=== PATIENT | female | born 1940 | race Caucasian/White ===

== ENCOUNTER 2024-11-27 10:57 | Outpatient (OUT) | payer MEDICARE, SELFPAY ==
[2024-11-27 11:36] LABS: Hematocrit 40.8 % (36.0-48.0); Hemoglobin 13.4 g/dL (12.0-16.0); Immature Granulocytes Abs Auto 0.00 10^3/uL (0.00-0.03); Immature Granulocytes Pct Auto 0.0 % (0.0-0.5); Lymphocytes Absolute Auto 1.6 10^3/uL (1.2-3.8); Mean Corpuscular HGB Conc 32.8 g/dL (29.9-35.2); Mean Corpuscular Hemoglobin 33.8 pg (26.7-34.0); Mean Corpuscular Volume 102.8 fL (81.0-99.0); Platelet Count 191 10^3/uL (150-450); Red Blood Count 3.97 10^6/uL (4.20-5.40); White Blood Count 4.2 10^3/uL (4.0-11.0)
== END 2024-11-27 10:58 | disposition home or self-care (01) ==
LOC: LAB 11:02
PROVIDERS: PCP Family Medicine; Visit Provider Ophthalmology
DX: C43.111 Malignant melanoma of right upper eyelid, including canthus (principal)
CPT/HCPCS: 36415; 85025

== ENCOUNTER 2025-01-09 19:36 | Emergency (ER) | payer MEDICARE, SELFPAY ==
[2025-01-09 19:46] VITALS: BP 150/72; PULSE 60; TEMP 36.4; O2SAT 96; BMI 24.1
--- NOTE | 2025-01-09 19:57 | CT_ITS ---
[address] [address] Patient Name: SARAH KAY MRN: [id number] date: 1940 Sex: F Assigned Patient Location: ER Current Patient Location: [facility] Accession/Order Number: [id number] Exam Date: 01/09/2025 20:15 Report Date: 01/09/2025 21:01 At the request of: ABBY TINOCO Procedure: CT cervical spine wo con Unenhanced head CT TECHNIQUE: Contiguous axial imaging of the head. The CT exam was performed using one or more the following dose reduction techniques: Automated exposure control, adjustment of the MA and/or Kv according to patient size, or use of the iterative reconstruction technique. COMPARISON: None HISTORY: Fell. Head injury. VENTRICLES: Within normal limits ATROPHY: None BRAIN PARENCHYMA: Adequate flores-white matter differentiation identified. HEMORRHAGE: None HERNIATION: No mass effect or herniation INFARCTION: No recent vascular distribution infarction is seen. EXTRA-AXIAL FLUID COLLECTIONS None MIDBRAIN: Unremarkable SENTHIL: Unremarkable MEDULLA: Unremarkable SINUSES: Opacification of the maxillary sinuses. ORBITS: Grossly unremarkable MASTOIDS: Unremarkable BONY STRUCTURES Intact ADDITIONAL FINDINGS: CT/CT head/brain wo con IMPRESSION: No acute intracranial findings. Posterior scalp hematoma. CT Cervical Spine withoutcontrast TECHNIQUE: Axial imaging with 2-D and 3-D reconstruction. The CT exam was performed using one or more the following dose reduction techniques: Automated exposure control, adjustment of the MA and/or Kv according to patient size, or use of the iterative reconstruction technique. COMPARISON: None HISTORY: Fell. Head injury. POST SURGERY CHANGES: None BONY ALIGNMENT: Adequate BONY SPINAL CANAL: Patent central bony canal FRACTURE: None BONY LESIONS: None SOFT TISSUES: Unremarkable DEGENERATIVE CHANGES: Extensive multilevel degenerative changes. LUNG APICES: Unremarkable ADDITIONAL FINDINGS: Posterior scalp hematoma IMPRESSION: No acute process Impression dictated by: Aaron Albarran M.D. 01/09/2025 9:01 PM Dictation Location: [facility] [employer] Electronically authenticated by: [id number] Y Date: 01/09/2025 21:01
--- NOTE | 2025-01-09 19:57 | XR_ITS ---
The [address] [address] Patient Name: SARAH KAY MRN: [id number] date: 1940 Sex: F Assigned Patient Location: ER Current Patient Location: ED.MAIN Accession/Order Number: [id number] Exam Date: 01/09/2025 20:15 Report Date: 01/09/2025 21:09 At the request of: ABBY TINOCO Procedure: XR hip LT 2V w/ pelvis 2 views left hip with single view pelvis HISTORY: Fell injuring left hip. Left hip arthroplasty. No hardware complication. Diffuse osteopenia and degenerative change. No acute displaced fracture. XR/XR hip LT 2V w/ pelvis IMPRESSION: Uncomplicated left hip arthroplasty. No acute displaced fracture. Impression dictated by: Aaron Albarran M.D. 01/09/2025 9:09 PM Dictation Location: [facility] Electronically authenticated by: [id number] Y Date: 01/09/2025 21:09
--- NOTE | 2025-01-09 19:57 | ED_ITS ---
HPI HPI - Fall General Chief Complaint: Fall Stated Complaint: FALL Time Seen by Provider: 01/09/25 19:47 Source: patient Mode of arrival: Wheelchair Limitations: no limitations History of Present Illness HPI Narrative: The patient is a 84-year-old female who presents to the Emergency Department after sustaining a head injury earlier today. She reports that she was walking down stairs when she fell near the last step, striking the back of her head. She recalls the entire event. She did not lose consciousness and denies any nausea, vomiting, disorientation, visual changes, or confusion. She does recall the entire event and was ambulatory afterward. She reports some bleeding from the scalp and pain over the left hip, which she also may have impacted during the fall. She denies neck pain, numbness, or tingling in extremities, and is able to ambulate without difficulty. She also denies headache, dizziness, chest pain, or shortness of breath. Related Data Home Medications ?Medication ?Instructions ?Recorded ?Confirmed amlodipine 5 mg tablet 5 mg PO DAILY 01/09/2501/09 atorvastatin 40 mg tablet 40 mg PO DAILY 01/09/2507/01 levetiracetam 500 mg tablet 500 mg PO BID 01/09/2507/01 oxybutynin chloride 5 mg 5 mg PO DAILY 01/09/2501/09 tablet,extended release 24 hr pantoprazole 40 mg tablet,delayed 40 mg PO DAILY 01/0901/09/25 release Previous Rx's ?Medication ?Instructions ?Recorded hydrocodone 5 mg-acetaminophen 325 1 tab PO Q6H PRN pa in #7 tabs 01/09/25 mg tablet Allergies Allergy/AdvReac Type Severity Reaction Status Date / Time celecoxib (From Celebrex) AdvReac Mild Hives Verified 01/09/25 19:46 ibuprofen AdvReac Mild Hives Verified 01/09/25 19:46 tramadol AdvReac Mild Nausea Verified 01/09/25 19:46 PFSH PFSH Social History Little interest or pleasure in doing things: not at all Feeling down, depressed, or hopeless: not at all Exam Narrative Exam Narrative: * General: Alert, oriented ?3, in no acute distress. * Head: * 2 cm linear laceration to occipital scalp with active bleeding on arrival. * No depression, step-off, or signs of basilar skull fracture. * No facial bone tenderness, ecchymosis, or edema. * Eyes: PERRL, EOMI. No visual changes reported. * Ears: No hemotympanum. No Lindsey?s sign. * Nose/Throat: No rhinorrhea, no oral or nasal bleeding. * Neck: * No midline cervical spine tenderness, no step-off, no deformity. * Full range of motion. No crepitus. * Neuro: * GCS 15 * Cranial nerves II?XII grossly intact * No focal deficits * Sensation intact throughout * No weakness or ataxia * Cardiovascular: Regular rate and rhythm. Pulses equal bilaterally in all extremities. * Musculoskeletal: * Left hip: Tender to palpation, no gross deformity, no rotation or shortening, no ecchymosis. Ambulatory without assistance. * Skin: Scalp wound cleaned. No other wounds noted. * Other: Tetanus status updated today. Constitutional Vital Signs, click to edit/add: Last Vital Signs Temp 97.6 F 01/09/25 19:46 Pulse 60 01/09/25 19:46 Resp 18 01/09/25 19:46 BP 150/72 H 01/09/25 19:46 Pulse Ox 96 01/09/25 19:46 O2 Del Method Room Air 01/09/25 19:46 Course Vital Signs Vital signs: Vital Signs Temperature 97.6 F 01/09/25 19:46 Pulse Rate 60 01/09/25 19:46 Respiratory Rate 18 01/09/25 19:46 Blood Pressure 150/72 H 01/09/25 19:46 Pulse Oximetry 96 01/09/25 19:46 Oxygen Delivery Method Room Air 01/09/25 19:46 Temperature 97.6 F 01/09/25 19:46 Pulse Rate 60 01/09/25 19:46 Respiratory Rate 18 01/09/25 19:46 Blood Pressure 150/72 H 01/09/25 19:46 Pulse Oximetry 96 01/09/25 19:46 Oxygen Delivery Method Room Air 01/09/25 19:46 MDM - Fall MDM Narrative Medical decision making narrative: This is a low-risk blunt head trauma in a neurologically intact adult patient. No anticoagulants. The patient struck the occipital scalp during a fall, resulting in a 2 cm scalp laceration, but denies any symptoms concerning for intracranial injury such as LOC, confusion, vomiting, or seizure. Exam confirms GCS 15, no focal neurologic deficits, no skull step-off, and no signs of basilar skull fracture. A non-contrast CT of the head and cervical spine was performed to rule out internal injury given the mechanism. CT shows no signs of acute pathology in the head or c-spine CT. Laceration was cleaned and closed using 3 scalp la nena after topical anesthesia with LET. Hemostasis was achieved without complication. Patient also complained of left hip pain, but there is no evidence of dislocation or fracture on exam, and she remains ambulatory without difficulty. No neurologic or vascular compromise noted in the lower extremities. No imaging of the hip was obtained at this time based on a normal exam and preserved function. Xray of Hip shows no acute fracture or findings Patient requested pain medication for her pain the next day and I sent in a very short term Rx. OARRS was not suggestive of abuse . Discussed appropriate use. Differential Diagnosis: * Scalp laceration from trauma ? confirmed, treated with la nena * Concussion / Minor TBI ? low likelihood given no LOC, persistent symptoms, or neuro deficits * Occult skull fracture ? unlikely, no step-off or neuro signs; ruled out by CT * Hip contusion / soft tissue injury ? possible, without signs of fracture or dislocation * Cervical spine injury ? ruled out by clinical exam and CT ED Procedures: * Scalp laceration closure with 3 la nena * 2cm laceration * Wound cleansing with peroxide and normal saline * LET topical anesthetic applied prior to closure * Tetanus vaccine administered and updated * Dressing applied after repair Medical Records Attestation: I reviewed the patient's medical records. Lab Data Attestation: I reviewed the patient's lab results. Imaging Data CT scan - head: Attestation: I have reviewed the pertinent imaging results. Radiologist's impression: ITS Impressions Cervical Spine CT 01/09/25 19:57 IMPRESSION: No acute intracranial findings. Posterior scalp hematoma. CT Cervical Spine withoutcontrast TECHNIQUE: Axial imaging with 2-D and 3-D reconstruction. The CT exam was performed using one or more the following dose reduction techniques: Automated exposure control, adjustment of the MA and/or Kv according to patient size, or use of the iterative reconstruction technique. COMPARISON: None HISTORY: Fell. Head injury. POST SURGERY CHANGES: None BONY ALIGNMENT: Adequate BONY SPINAL CANAL: Patent central bony canal FRACTURE: None BONY LESIONS: None SOFT TISSUES: Unremarkable DEGENERATIVE CHANGES: Extensive multilevel degenerative changes. LUNG APICES: Unremarkable ADDITIONAL FINDINGS: Posterior scalp hematoma IMPRESSION: No acute process Impression dictated by: Aaron Albarran M.D. 01/09/2025 9:01 PM Dictation Location: [facility] Electronically authenticated by: [id number] Y Date: 01/09/2025 21:[address] 01/09/25 19:57 IMPRESSION: No acute intracranial findings. Posterior scalp hematoma. CT Cervical Spine withoutcontrast TECHNIQUE: Axial imaging with 2-D and 3-D reconstruction. The CT exam was performed using one or more the following dose reduction techniques: Automated exposure control, adjustment of the MA and/or Kv according to patient size, or use of the iterative reconstruction technique. COMPARISON: None HISTORY: Fell. Head injury. POST SURGERY CHANGES: None BONY ALIGNMENT: Adequate BONY SPINAL CANAL: Patent central bony canal FRACTURE: None BONY LESIONS: None SOFT TISSUES: Unremarkable DEGENERATIVE CHANGES: Extensive multilevel degenerative changes. LUNG APICES: Unremarkable ADDITIONAL FINDINGS: Posterior scalp hematoma IMPRESSION: No acute process Impression dictated by: Aaron Albarran M.D. 01/09/2025 9:01 PM Dictation Location: [facility] Electronically authenticated by: [id number] Y Date: 01/09/2025 21:01 Hip/Pelvis X-Ray 01/09/25 19:57 IMPRESSION: Uncomplicated left hip arthroplasty. No acute displaced fracture. Impression dictated by: Aaron Albarran M.D. 01/09/2025 9:09 PM Dictation Location: [facility] Electronically authenticated by: [id number] Y Date: 01/09/2025 21:09 Discharge Plan Discharge Chief Complaint: Fall Clinical Impression: Head injury, Laceration of scalp, Contusion of hip, left, Fall Patient Disposition: Home, Self-Care Prescriptions / Home Meds: New hydrocodone-acetaminophen 5-325 mg tablet 1 tab PO Q6H PRN (Reason: pain) Qty: 7 0RF No Action amlodipine 5 mg tablet 5 mg PO DAILY atorvastatin 40 mg tablet 40 mg PO DAILY levetiracetam 500 mg tablet 500 mg PO BID oxybutynin chloride 5 mg tablet extended release 24hr 5 mg PO DAILY pantoprazole 40 mg tablet,delayed release (DR/EC) 40 mg PO DAILY Print Language: Nepali Instructions: Head Injury (ED), Staple Care (ED), Fall Prevention (ED), Hip Contusion (ED) Additional Instructions: Diagnoses: * Scalp laceration * Minor head trauma without concussion * Left hip contusion (mild) ED Course: * CT head and C-spine performed ? no acute findings * Scalp wound cleaned and closed with 3 la nena * Tetanus vaccine administered * Hip pain assessed and no signs of fracture or dislocation Wound Care Instructions: * Keep scalp wound clean and dry for 24?48 hours * [place] may be removed in 7?10 days (follow up with PCP or urgent care) * Monitor for signs of infection: redness, warmth, drainage, or increased pain Concussion Precautions: * Although there is no evidence of concussion, monitor for: * Headache that worsens * Vomiting * Confusion or memory problems * Slurred speech * Weakness or numbness * Vision changes or balance problems * Return to the ED immediately for any of the above Hip Pain: * Rest, ice, and OTC pain medications as needed * Return if swelling, bruising, or difficulty walking develops Follow-Up: * PCP or wound check in 7?10 days for staple removal * Return to ED if any neurological symptoms, wound concerns, or hip pain wor Referrals: NARCISA CHATTERJEE [Primary Care Provider, Family Practice] - 1 week
--- NOTE | 2025-01-09 19:57 | CT_ITS ---
[address] [address] Patient Name: SARAH KAY MRN: [id number] date: 1940 Sex: F Assigned Patient Location: ER Current Patient Location: .[facility] Accession/Order Number: [id number] Exam Date: 01/09/2025 20:20 Report Date: 01/09/2025 21:01 At the request of: ABBY TINOCO Procedure: CT cervical spine wo con Unenhanced head CT TECHNIQUE: Contiguous axial imaging of the head. The CT exam was performed using one or more the following dose reduction techniques: Automated exposure control, adjustment of the MA and/or Kv according to patient size, or use of the iterative reconstruction technique. COMPARISON: None HISTORY: Fell. Head injury. VENTRICLES: Within normal limits ATROPHY: None BRAIN PARENCHYMA: Adequate flores-white matter differentiation identified. HEMORRHAGE: None HERNIATION: No mass effect or herniation INFARCTION: No recent vascular distribution infarction is seen. EXTRA-AXIAL FLUID COLLECTIONS None MIDBRAIN: Unremarkable SENTHIL: Unremarkable MEDULLA: Unremarkable SINUSES: Opacification of the maxillary sinuses. ORBITS: Grossly unremarkable MASTOIDS: Unremarkable BONY STRUCTURES Intact ADDITIONAL FINDINGS: CT/CT cervical spine wo con IMPRESSION: No acute intracranial findings. Posterior scalp hematoma. CT Cervical Spine withoutcontrast TECHNIQUE: Axial imaging with 2-D and 3-D reconstruction. The CT exam was performed using one or more the following dose reduction techniques: Automated exposure control, adjustment of the MA and/or Kv according to patient size, or use of the iterative reconstruction technique. COMPARISON: None HISTORY: Fell. Head injury. POST SURGERY CHANGES: None BONY ALIGNMENT: Adequate BONY SPINAL CANAL: Patent central bony canal FRACTURE: None BONY LESIONS: None SOFT TISSUES: Unremarkable DEGENERATIVE CHANGES: Extensive multilevel degenerative changes. LUNG APICES: Unremarkable ADDITIONAL FINDINGS: Posterior scalp hematoma IMPRESSION: No acute process Impression dictated by: Aaron Albarran M.D. 01/09/2025 9:01 PM Dictation Location: [employer] Electronically authenticated by: [id number] Y Date: 01/09/2025 21:01
[2025-01-09] MEDS: LIDOCAINE/EPINEPHRINE/TETRACAINE 3 ML GEL.PF.APP TOPICAL (20:07)
[2025-01-09] MEDS: DIPHTH,PERTUSS(ACELL),TET VAC 0.5 ML SYRINGE IM (20:56)
[2025-01-09] MEDS: HYDROCODONE/ACET 5-325 MG TABLET 1 TAB PO (21:30)
[2025-01-09 21:36] VITALS: BP 101/55; O2SAT 98
== END 2025-01-09 21:45 | disposition home or self-care (01) ==
PROVIDERS: Emergency Provider Emergency Medicine; PCP Family Medicine
DX: S01.01XA Laceration without foreign body of scalp, initial encounter (principal); W10.8XXA Fall (on) (from) other stairs and steps, initial encounter; S70.02XA Contusion of left hip, initial encounter; S09.90XA Unspecified injury of head, initial encounter; Z96.642 Presence of left artificial hip joint; Z23 Encounter for immunization
CPT/HCPCS: 12001; 70450; 72125; 73502; 76376; 90471; 90715; 99284